=== PATIENT | female | born 1980 | race Caucasian/White ===

== ENCOUNTER 2020-03-16 00:12 | Emergency (ER) | payer OTHER ==
[~2020-03-16] VITALS: Ht 160 cm; Wt 48.0 kg
--- NOTE | 2020-03-16 00:30 | PHYS DOC ---
Past History Additional Past Medical Histor: PVCs General Adult EDM: Chief Complaint: Palpitations HPI: HPI: 40-year-old female presents with report of palpitations that have become worse tonight. Patient does have a history of known PVCs which she has had ongoing for the past year. Patient was recently started on metoprolol to try to help control these PVCs. Tonight reports associated dizziness, generalized malaise, and nausea. Reports currently symptoms have improved. Patient denies increased life stressors at home. Denies illicit drug use. Denies increased caffeine consumption or eoxr-eha-blpwzgs cold preparations. Denies . Reports LMP was approximately 3 weeks ago. Denies fever/chills. Denies trauma. Review of Systems: Review of Systems: Constitutional: Denies fever or chills; reports generalized malaise Eyes: Denies redness or eye pain HENT: Denies nasal congestion or sore throat Respiratory: Denies cough or shortness of breath Cardiovascular: Denies chest pain; reports palpitations GI: Denies abdominal pain or vomiting; reports nausea : Denies dysuria or hematuria Musculoskeletal: Denies back pain or joint pain Integument: Denies rash or skin lesions Neurologic: Denies headache, focal weakness or sensory changes Complete systems were reviewed and found to be within normal limits, except as documented in this note. Heart Score: HEART Score for Chest Pain: HEART Score for Chest Pain Response (Comments) Value History Slighlty/Non-Suspicious 0 ECG Normal 0 Age < 45 0 Risk Factors No Risk Factors 0 Troponin < Normal Limit 0 Total 0 Risk Factors: Risk Factors: DM, Current or recent (<one month) smoker, HTN, HLP, family h istory of CAD, obesity. Risk Scores: Score 0 - 3: 2.5% MACE over next 6 weeks - Discharge Home Score 4 - 6: 20.3% MACE over next 6 weeks - Admit for Clinical Observation Score 7 - 10: 72.7% MACE over next 6 weeks - Early Invasive Strategies Current Medications: Current Meds: Current Medications Medications (Trade) Dose Ordered Sig/Syed Start Time Stop Time Status Last Admin Dose Admin Sodium Chloride 1,000 ml @ 1,000 mls/hr 1X ONCE 03/16/20 00:15 03/16/20 01:14 UNV Physical Exam: PE: Constitutional: Well developed, well nourished, no acute distress, non-toxic appearance HENT: Normocephalic, atraumatic Eyes: EOMI, PERRL, conjunctiva normal, no discharge Neck: Normal range of motion, supple, no meningeal signs Lungs & Thorax: No respiratory distress, equal chest rise and fall Cardiovascular: Radial pulses +2 bilaterally, CR < 2 sec, occasional PVC noted on telemetry monitoring Skin: Warm, dry, no erythema, no rash Extremities: No tenderness, ROM intact, no edema Neurologic: Alert and oriented X 3, motor and sensory functions intact, no focal deficits noted Psychologic: Affect anxious, judgment normal EKG: EKG: @0018 NSR at 63bpm, NO ST elevation, occasional PVC, QRS 84ms, QT/QTc 392/404ms @0157 Sinus bradycardia at 53bpm,NO ST elevation, QRS 84ms, QT/QTc 418/394ms Radiology/Procedures: Radiology/Procedures: [] Course & Med Decision Making: Course & Med Decision Making Pertinent Lab studies reviewed. (See chart for details) Patient with past medical history of PVCs presents with report of palpitations. EKG stable. Labs obtained and posted to chart. Hypokalemia addressed. Thyroid studies pending. IV fluid hydration given. Repeat EKG stable. Patient stable for discharge with outpatient follow-up with PCP/cardiology. Cardiology referral provided. Discussed findings and plan with patient, who acknowledges understanding and agreement. Noam Disclaimer: Noam Disclaimer: This electronic medical record was generated, in whole or in part, using a voice recognition dictation system. Departure Departure: Impression: Primary Impression: Palpitations Additional Impressions: PVC (premature ventricular contraction) Hypokalemia Disposition: 01 HOME/RESIDENCE PRIOR TO ADM Condition: STABLE Referrals: PCP,UNKNOWN (PCP) LEONARD URBANO MD Patient Instructions: Hypokalemia, Palpitations, Jrih-bu-[id number], Potassium Content of Foods, Premature Ventricular Contraction Additional Instructions: Please follow-up closely with your manager of distribution or the one provided above. Justification of Admission: Justification of Admission: Justification of Admission Dx: N/A SHAE GRIDER DO Mar 16, 2020 00:30
[2020-03-16 00:45] LABS: BASO % 1 % (0-3); EOS # 0.1 x10^3/uL (0.0-0.7); EOS % 1 % (0-3); HEMATOCRIT 40.2 % (36.0-47.0); HEMOGLOBIN 13.7 g/dL (12.0-15.5); LYMPH # 3.1 x10^3/uL (1.0-4.8); LYMPH % 43 % (24-48); MEAN CORPUSCULAR HEMOGLOBIN 31 pg (25-35); MEAN CORPUSCULAR HGB CONC 34 g/dL (31-37); MEAN CORPUSCULAR VOLUME 92 fL (79-100); MONO # 0.7 x10^3/uL (0.0-1.1); MONO % 10 % (0-9); NEUT # 3.3 x10^3uL (1.8-7.7); NEUT % 46 % (31-73); PLATELET COUNT 224 x10^3/uL (140-400); RED BLOOD COUNT 4.39 x10^6/uL (3.50-5.40); RED CELL DISTRIBUTION WIDTH 12.1 % (11.5-14.5); WHITE BLOOD COUNT 7.3 x10^3/uL (4.0-11.0)
[2020-03-16 00:50] LABS: CALCIUM 9.1 mg/dL (8.5-10.1); CREATININE 0.8 mg/dL (0.6-1.0); GFR 79.9; POTASSIUM 3.2 mmol/L (3.5-5.1)
[2020-03-16 00:56] LABS: ALBUMIN/GLOBULIN RATIO 1.1 (1.0-1.7); MAGNESIUM 2.2 mg/dL (1.8-2.4); TOTAL BILIRUBIN 0.3 mg/dL (0.2-1.0); TOTAL PROTEIN 7.8 g/dL (6.4-8.2)
[2020-03-16] MEDS ORDERED: IV NORMAL SALINE 1,000ML 1,000 ML IV ONE (01:00)
[2020-03-16 01:57] LABS: BARBITURATES NEG (NEG); BENZODIAZEPINES NEG (NEG); CANNABINOIDS NEG (NEG); COCAINE NEG (NEG); METHADONE NEG (NEG); OPIATES NEG (NEG); PHENCYCLIDINE NEG (NEG)
[2020-03-16 02:00] LABS: AMPHETAMINE/METHAMPHETAMINE NEG (NEG)
[2020-03-16] MEDS ORDERED: POTASSIUM CHLORIDE 20 MEQ TABLET.ER. PO ONE (02:00)
[2020-03-16 02:02] LABS: BILIRUBIN,URINE NEG (NEG); CLARITY,URINE CLEAR; COLOR,URINE STRAW; GLUCOSE,URINE NEG (NEG); NITRITE,URINE NEG (NEG); UROBILINOGEN,URINE 0.2 mg/dL (0.2 mg/dL)
[2020-03-16 02:03] LABS: BACTERIA,URINE 0 /HPF (0-FEW); RBC,URINE 0 /HPF (0-2); WBC,URINE RARE /HPF (0-4)
[2020-03-16 02:10] VITALS: BP 116/70
--- NOTE | 2020-03-16 07:14 | EKG ---
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
--- NOTE | 2020-03-16 07:15 | EKG ---
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
[2020-03-16 19:07] LABS: FREE T4 1.09 ng/dL (0.76-1.46); THYROID STIM HORMONE (TSH) 8.892 uIU/mL (0.358-3.740)
== END 2020-03-16 02:20 | disposition home or self-care (01) ==
LOC: ER 00:12
DX: R00.2 Palpitations (principal); I49.3 Ventricular premature depolarization; E87.6 Hypokalemia
CPT/HCPCS: 36415; 80053; 80307; 81001; 81025; 83735; 84439; 84443; 84481; 85025; 93005; 96360; 96361; 99284; J7030